=== PATIENT | female | born 1960 ===

== ENCOUNTER 2017-06-24 10:16 | Emergency (ER) | payer OTHER ==
[2017-06-24 10:47] VITALS: BMI 29.9
[2017-06-24 12:09] LABS: BASO % 0.2 % (0.0-2.0); EOS % 0.1 % (0.0-4.0); HEMOGLOBIN 14.1 g/dL (12.0-16.0); LYMPH # 0.6 K/uL (1.0-4.3); LYMPH % 10.9 % (20.0-40.0); MEAN CELL VOLUME 87.7 fl (81.0-99.0); MEAN CORPUSCULAR HEMOGLOBIN 29.7 pg (27.0-31.0); MEAN CORPUSCULAR HGB CONC 33.9 g/dL (33.0-37.0); MEAN PLATELET VOLUME 8.6 fl (7.2-11.7); MONO # 0.4 K/uL (0.0-0.8); NEUT # 4.2 K/uL (1.8-7.0); NEUT % 80.8 % (50.0-75.0); RBC 4.73 Mil/uL (3.80-5.20); RED CELL DISTRIBUTION WIDTH 14.2 % (11.5-14.5); WHITE BLOOD COUNT 5.3 K/uL (4.8-10.8)
[2017-06-24 12:26] LABS: ALB/GLOB RATIO 1.5 (1.0-2.1); ALBUMIN 4.1 g/dL (3.5-5.0); ALT/SGPT 36 U/L (9-52); AST/SGOT 32 U/L (14-36); BLOOD UREA NITROGEN 16 mg/dl (7-17); CALCIUM 8.6 mg/dL (8.4-10.2); GFR AFRICAN-AMERICAN > 60; GFR NON-AFRICAN AMERICAN > 60
--- NOTE | 2017-06-24 12:56 | RAD ---
HISTORY: cough, feverish COMPARISON: No prior. TECHNIQUE: Chest PA and lateral FINDINGS: LUNGS: Blunting of the right costophrenic sulcus. Findings suggest infiltrate/atelectasis. PLEURA: No significant pleural effusion identified. No pneumothorax apparent. CARDIOVASCULAR: No radiographic findings to suggest acute or significant cardiovascular disease. OSSEOUS STRUCTURES: No significant abnormalities. VISUALIZED UPPER ABDOMEN: Normal. OTHER FINDINGS: None. IMPRESSION: Right lower lobe infiltrate/atelectasis.
[2017-06-24] MEDS ORDERED: Albuterol 0.083% Inhal Sol (2.5 mg/3 mL) UD INH STA (14:00)
--- NOTE | 2017-06-24 14:01 | ED PDOC ---
HPI: General Adult Time Seen by Provider: 06/24/17 11:19 Chief Complaint (Nursing): Flu-like Symptoms Chief Complaint (Provider): Cough, feverish, body aches History Per: Patient History/Exam Limitations: no limitations Onset/Duration Of Symptoms: Hrs Have you had recent travel within the past 21 days to any of the following countries: [place], [place], [place] or [place]?: No Current Symptoms Are (Timing): Still Present Severity: Moderate Pain Scale Rating Of: 6 Additional Complaint(s): 57 yo female with lupus and thyroid disease states she woke up with body aches, feverish and mild cough. Pt report feeling well yesterday. Past Medical History Reviewed: Historical Data, Nursing Documentation, Vital Signs Vital Signs: Last Vital Signs Temp 98.5 F 06/24/17 10:47 Pulse 80 06/24/17 10:47 Resp 17 06/24/17 10:47 BP 125/64 06/24/17 10:47 Pulse Ox 95 06/24/17 14:01 - Medical History PMH: Hypothyroidism Other PMH: Lupus - Surgical History Surgical History: No Surg Hx - Family History Family History: States: No Known Family Hx - Home Medications Home Medications: Ambulatory Orders Medication Instructions Recorded Famotidine [Pepcid] 20 mg PO DAILY #14 tab 02/24/16 Levofloxacin 0 ml OP PRN #1 bottle 06/24/17 levoFLOXacin [Levaquin] 500 mg PO DAILY #7 tab 06/24/17 - Allergies Allergies/Adverse Reactions: Allergies Allergy/AdvReac Type Severity Reaction Status Date / Time pollen extracts Allergy RASH Verified 06/24/17 11:11 tomato Allergy RASH Verified 06/24/17 11:11 - Laboratory Results Result Diagrams: 06/24/17 11:54 06/24/17 11:54 - ECG O2 Sat by Pulse Oximetry: 95 Medical Decision Making Medical Decision Making: (+) infiltrate. Discussed with Dr. Schumacher. IV rocephin in ER and levaquin for home. Disposition - Clinical Impression Clinical Impression: Pneumonia - Patient ED Disposition Is Patient to be Admitted: No Counseled Patient/Family Regarding: Diagnosis, Need For Followup - Disposition Referrals: [facility] [Outside] Disposition: Routine/Home Disposition Time: 15:09 Condition: GOOD Prescriptions: levoFLOXacin [Levaquin] 500 mg PO DAILY #7 tab Levofloxacin 0 ml OP PRN #1 bottle Instructions: Bacterial Pneumonia (ED) Forms: [facility] (Chinese)
[2017-06-24] MEDS ORDERED: Albuterol 0.083% Inhal Sol (2.5 mg/3 mL) UD ONE (14:26)
[2017-06-24 16:23] VITALS: BP 132/63; PULSE 82; RESP 18; TEMP 97.9; O2SAT 98
== END 2017-06-24 16:22 | disposition home or self-care (01) ==
LOC: H.ER 10:16
DX: J15.9 Unspecified bacterial pneumonia (principal); E03.9 Hypothyroidism, unspecified; M32.9 Systemic lupus erythematosus, unspecified
CPT/HCPCS: 71046; 80053; 85025; 87040; 87804; 94640; 96365; 99283; J0696